=== PATIENT | female | born 1930 | race Caucasian/White ===

== ENCOUNTER 2016-12-01 09:02 | Outpatient (CLI) | payer OTHER ==
[~2016-12-01 09:02] MED LIST: ACETAMINOPHEN500 MG PO; LEVOTHYROXINE75 MCG PO; OXYCODONE HCL E15 MG PO
== END 2016-12-01 23:00 ==
LOC: LAB SRH 09:02
DX: Z53.9 Procedure and treatment not carried out, unspecified reason (principal)
CPT/HCPCS: 90074; 91643; 95059

== ENCOUNTER 2016-12-05 10:04 | Outpatient (CLI) | payer OTHER | END 2016-12-05 23:00 | LOC: LAB SRH 10:04 | DX: Z53.9 Procedure and treatment not carried out, unspecified reason (principal) | CPT/HCPCS: 90001; 90074; 90155; 91004; 95059 ==